=== PATIENT | female | born 1990 | race Asian ===

== ENCOUNTER 2018-12-07 19:38 | Inpatient (IN) | payer OTHER ==
[~2018-12-07] VITALS: Ht 165.1 cm; Wt 49.9 kg
--- NOTE | 2018-12-07 19:58 | NUR ---
SE RECIBE FEMINA ALERTA Y ORIENTADA POR MAHI ESFERAS, EN AMBULANCIA. REFIERE QUE PRESENTA DOLOR ABDOMINAL EN CUADRANTE SUPERIOR DERECHO DE CUATRO VARGHESE DE EVOLUCION.
--- NOTE | 2018-12-07 20:02 | NUR ---
. DONALDSON ORIENTA A PACIENTE SOBRE TRATAMIENTO. PRINCESS MUESTRAS DE LABORAORIO ORDENADAS. CANALIZA CON AREA DE VENOPUNCION WES DE EDEMA O ENROJECIMIENTO. ADMINISTRA MEDICAMENTOSN ORDENADOS. SE MANTIENE EN OBSERVACION POR CAMBIOS.
--- NOTE | 2018-12-07 22:21 | NUR ---
PTE AL MOMENTO EN SONOGRAMA.
--- NOTE | 2018-12-08 00:37 | NUR ---
PACIENTE ALERTA Y ORIENTADA POR MAHI ESFERAS EN YOUNG CON BARANDAS ELEVADAS POR PEDRAZA SEGURIDAD. SE OBSERVA A PACIENTE CON BUEN PATRON RESPIRATORIO Y PIEL TIBIA AL TACTO. SE OBSERVA .9NSS @ 125ML/HR. SE ORIENTA A PACIENTE SOBRE CONTRASTE PARA CT ABD/PELV.
--- NOTE | 2018-12-08 07:54 | NUR ---
SE RECIBE PTE FEMENIAN DE 28 YRS ALERTA CONCIENTE Y TRANQUILA EN COMPANIA DE FAMILIAR. PTE CON IVF PANTENTE Y WES DE EDEDMA. PT AL MOMENTO WES DE DOLOR. SE OBSERVA POR MEDICO CONSULTOR.SE MANTIENE BAJO OBSERVACION POR CAMBIOS.
[2018-12-12] MEDS ORDERED: BACTRIM DS TAB1 EACH PO (19:55)
== END 2018-12-13 10:46 | disposition home or self-care (01) | DRG 689 ==
LOC: ER 19:38 → SEC-K 12-08 09:32 → SURH 12-08 17:31
PROVIDERS: ADMIT Student in an Organized Health Care Education/Training Program
PROC: BW21ZZZ Computerized Tomography (CT Scan) of Abdomen and Pelvis (ICD-10-PCS; principal; 2018-12-08)
DX: N12 Tubulo-interstitial nephritis, not specified as acute or chronic (principal); A41.89 Other specified sepsis; N39.0 Urinary tract infection, site not specified; I95.89 Other hypotension; E86.0 Dehydration